=== PATIENT | female | born 1975 | race Caucasian/White ===

== ENCOUNTER → 2018-03-05 | Outpatient (CLI) | payer OTHER ==
[~2018-03-05] MED LIST: ADVAIR 500/501 DISK IH; AMBIEN5 MG PO; BACTRIM,SEPT1 TABLET PO; BENADRYL ALLERG25 MG PO; BENICAR5 MG PO; CIPRO500 MG PO; CRANBERRY TABL1 EACH PO; DICYCLOMINE HCL20 MG PO; DULERA 100 MCG/13 GM IH; FLAGYL500 MG PO; MONTELUKAST SOD10 MG PO; PATANASE30.5 GM BOTH NARES; PHENERGAN-CODE120 ML PO; PREDNISONE50 MG PO; PROVENTIL,2.5 MG/3 M IH; WELLBUTRIN XL300 MG PO; ZANTAC150 MG PO; ZYRTEC10 M2 PO
== END | disposition home or self-care (01) ==
LOC: CDC 08:13
DX: Z01.810 Encounter for preprocedural cardiovascular examination (principal); N92.0 Excessive and frequent menstruation with regular cycle; I10 Essential (primary) hypertension; R94.31 Abnormal electrocardiogram [ECG] [EKG]
CPT/HCPCS: 93000

== ENCOUNTER 2018-03-28 10:00 | Day surgery (SDC) | payer OTHER ==
[~2018-03-28] VITALS: Ht 165.1 cm; Wt 129.7 kg
[~2018-03-28 10:00] MED LIST changes: +ADVIL,NUPRIN,M200 MG PO; +AVAPRO75 MG PO; +PROAIR HFA8.5 GM IH; +VYZULTA; +ZANTAC75 M1 PO
[2018-03-28] MEDS ORDERED: LATANOPROST2.5 ML BOTH EYES (10:27)
[2018-03-28 10:31] VITALS: BP 143/82
[2018-03-28 13:35] VITALS: BP 160/87
[2018-03-28 14:25] VITALS: BP 160/90
== END 2018-03-28 14:37 | disposition home or self-care (01) ==
LOC: SDC 10:00
PROC: 0U5B8ZZ Destruction of Endometrium, Via Natural or Artificial Opening Endoscopic (ICD-10-PCS; principal; 2018-03-28)
DX: N92.0 Excessive and frequent menstruation with regular cycle (principal); N94.6 Dysmenorrhea, unspecified; R10.2 Pelvic and perineal pain; I10 Essential (primary) hypertension; J45.909 Unspecified asthma, uncomplicated; F32.9 Major depressive disorder, single episode, unspecified; K57.90 Diverticulosis of intestine, part unspecified, without perforation or abscess without bleeding; G43.909 Migraine, unspecified, not intractable, without status migrainosus; Z88.1 Allergy status to other antibiotic agents; Z88.2 Allergy status to sulfonamides; Z88.8 Allergy status to other drugs, medicaments and biological substances; Z82.49 Family history of ischemic heart disease and other diseases of the circulatory system; Z83.49 Family history of other endocrine, nutritional and metabolic diseases; Z68.42 Body mass index [BMI] 45.0-49.9, adult
CPT/HCPCS: J0690; J1100; J1885; J2405; J3010